=== PATIENT | male | born 1980 | race Hispanic/Latino ===

== ENCOUNTER 2023-05-03 13:13 | Emergency (ER) | payer OTHER ==
[~2023-05-03] VITALS: Ht 185.4 cm; Wt 102.1 kg
[2023-05-03 13:30] VITALS: O2SAT 98
[2023-05-03] MEDS ORDERED: AMOXICILLIN500 MG PO (13:52)
== END 2023-05-03 14:00 | disposition home or self-care (01) ==
LOC: ER 13:22
DX: K02.9 Dental caries, unspecified (principal); F17.210 Nicotine dependence, cigarettes, uncomplicated
CPT/HCPCS: 99282

== ENCOUNTER 2023-05-19 15:32 | Emergency (ER) | payer OTHER ==
[~2023-05-19] VITALS: Ht 182.9 cm; Wt 108.9 kg
[~2023-05-19 15:32] MED LIST: AMOXICILLIN500 MG PO
[2023-05-19 15:44] VITALS: O2SAT 99
[2023-05-19] MEDS ORDERED: AMOXICILLIN500 MG PO (15:49)
[2023-05-19] MEDS ORDERED: IBUPROFEN600 MG PO (15:49)
== END 2023-05-19 16:39 | disposition home or self-care (01) ==
LOC: ER 15:50
DX: K08.89 Other specified disorders of teeth and supporting structures (principal); K02.9 Dental caries, unspecified
CPT/HCPCS: 99283

== ENCOUNTER 2025-01-16 13:07 | Emergency (ER) | payer OTHER ==
[~2025-01-16] VITALS: Ht 185.4 cm; Wt 106.1 kg
[~2025-01-16 13:07] MED LIST changes: +AMOX TR-K CLV1 EAC2 PO; +IBUPROFEN600 MG PO; +ULTRAM 50MG50 MG PO
[2025-01-16 13:17] VITALS: PULSE 73; RESP 18; TEMP 97.4; O2SAT 98
== END 2025-01-16 13:35 | disposition home or self-care (01) ==
LOC: ER 13:18
DX: Z04.1 Encounter for examination and observation following transport accident (principal); V43.52XA Car driver injured in collision with other type car in traffic accident, initial encounter; Y92.488 Other paved roadways as the place of occurrence of the external cause
CPT/HCPCS: 99282